=== PATIENT | male | born 1980 | race Two or more races ===

== ENCOUNTER 2018-04-05 17:25 | Emergency (ER) | payer SELFPAY ==
[~2018-04-05] VITALS: Ht 190.5 cm; Wt 94.6 kg
[2018-04-05 19:10] LABS: BASOPHILS # (AUTO) 0.02 x10^3/uL (0-0.1); BASOPHILS % (AUTO) 0 % (0-1); EOSINOPHILS # (AUTO) 0.17 x10^3/uL (0-0.4); EOSINOPHILS % (AUTO) 2 % (1-7); LYMPHOCYTES # (AUTO) 0.69 x10^3/uL (1-3.4); LYMPHOCYTES % (AUTO) 8 % (22-44); MD NO; MEAN CORPUSCULAR HEMOGLOBIN 21.6 pg (27.5-34.5); MEAN CORPUSCULAR HGB CONC 31.9 g/dL (33.2-36.2); MEAN CORPUSCULAR VOLUME 67.7 fL (81-97); MEAN PLATELET VOLUME 7.8 fL (7.4-10.4); MONOCYTES # (AUTO) 0.74 x10^3/uL (0.2-0.8); MONOCYTES % (AUTO) 8 % (2-9); NEUTROPHILS # (AUTO) 7.16 x10^3/uL (1.8-6.8); NEUTROPHILS % (AUTO) 82 % (42-75); PLATELET COUNT 271 x10^3/uL (130-400); RED BLOOD COUNT 7.18 x10^6/uL (4.38-5.82); RED CELL DISTRIBUTION WIDTH 14.5 % (9.4-14.8)
[2018-04-05 19:12] LABS: RAPID INFLUENZA A Negative (Negative); RAPID INFLUENZA B Negative (Negative)
[2018-04-05 19:21] LABS: ALBUMIN 4.1 g/dL (3.4-5.0); ANION GAP 8 mmol/L (5-15); CALCIUM 8.6 mg/dL (8.5-10.1); CHLORIDE 102 mmol/L (98-107)
[2018-04-05 19:30] LABS: ALANINE AMINOTRANSFERASE 36 U/L (12-78); ALKALINE PHOSPHATASE 51 U/L (45-117); BILIRUBIN,TOTAL 0.2 mg/dL (0.2-1.0); CREATININE 1.21 mg/dL (0.7-1.3); TOTAL PROTEIN 8.4 g/dL (6.4-8.2)
[2018-04-05] MEDS ORDERED: ACETAMINOPHEN 500 MG TABLET PO ONE (19:30)
[2018-04-05] MEDS ORDERED: ACETAMINOPHEN 500 MG TABLET ONE (19:35)
[2018-04-05 20:05] LABS: MICROSCOPIC NOT IND
[2018-04-05 20:25] LABS: CULTURE INDICATED? NO
[2018-04-05] MEDS ORDERED: OMNIPAQUE 350 MG/ML, 100ML BOTTLE ONE (20:25)
[2018-04-05 20:46] VITALS: BP 124/68
[2018-04-05] MEDS ORDERED: IBUPROFEN 200 MG TABLET PO ONE (21:00)
[2018-04-05] MEDS ORDERED: IBUPROFEN 600 MG TABLET ONE (21:08)
== END 2018-04-05 21:16 | disposition home or self-care (01) ==
LOC: ED 21:10
DX: R50.9 Fever, unspecified (principal); R05 Cough; R07.9 Chest pain, unspecified
CPT/HCPCS: 36415; 71045; 74177; 80053; 81003; 83690; 85025; 87400; 93005; 99284; Q9967

== ENCOUNTER 2019-12-18 13:31 | Inpatient (IN) | payer SELFPAY ==
[~2019-12-18] VITALS: Ht 188 cm; Wt 89.0 kg
--- NOTE | 2019-12-18 14:07 | NUR ---
PT BROUGHT TO ROOM, CHANGED INTO GOWN. PT C/O PROGRESSIVE GENERALIZED WEAKNESS OVER THE PAST 2 MONTHS, PROGRESSING TO DYSPNEA ON EVERTION. PT WAS VISITING HERE IN THE ER TODAY, AND FELL TO THE GROUND UPON LEAVING. WAS UNABLE TO GET BACK UP ON HIS OWN. PT NOTABLY WEAK IN ROOM, MUST USE ARMS TO HELP LIFT HIS LEGS ONTO THE BED. ATTACHED TO MONITORS. DENIES ANY NEEDS AT THIS TIME, CALL LIGHT IN REACH.
[2019-12-18] MEDS ORDERED: SODIUM CHLORIDE FLUSH 10ML SYR IVF ONE (14:30)
[2019-12-18 15:12] LABS: BASOPHILS # (AUTO) 0.01 x10^3/uL (0-0.1); BASOPHILS % (AUTO) 0 % (0-1); EOSINOPHILS # (AUTO) 0.22 x10^3/uL (0-0.4); EOSINOPHILS % (AUTO) 3 % (1-7); HCT (SEDRATE) 39.3 % (39.2-51.8); LYMPHOCYTES # (AUTO) 1.69 x10^3/uL (1-3.4); LYMPHOCYTES % (AUTO) 20 % (22-44); MD NO; MEAN CORPUSCULAR HEMOGLOBIN 20.6 pg (27.5-34.5); MEAN CORPUSCULAR VOLUME 66.3 fL (81-97); MEAN PLATELET VOLUME 7.4 fL (7.4-10.4); MONOCYTES # (AUTO) 0.05 x10^3/uL (0.2-0.8); MONOCYTES % (AUTO) 1 % (2-9); NEUTROPHILS # (AUTO) 6.51 x10^3/uL (1.8-6.8); NEUTROPHILS % (AUTO) 77 % (42-75); PLATELET COUNT 433 x10^3/uL (130-400); RED BLOOD COUNT 5.97 x10^6/uL (4.38-5.82); RED CELL DISTRIBUTION WIDTH 17.6 % (9.4-14.8)
[2019-12-18 15:17] LABS: ALANINE AMINOTRANSFERASE 389 U/L (12-78); ALBUMIN 2.6 g/dL (3.4-5.0); ANION GAP 2 mmol/L (5-15); CALCIUM 8.5 mg/dL (8.5-10.1); CHLORIDE 107 mmol/L (98-107); CREATININE 0.62 mg/dL (0.7-1.3)
[2019-12-18 15:22] LABS: ALKALINE PHOSPHATASE 49 U/L (45-117); BILIRUBIN,TOTAL 0.3 mg/dL (0.2-1.0); TOTAL PROTEIN 9.2 g/dL (6.4-8.2); TROPONIN I 0.235 ng/mL (0.000-0.045)
[2019-12-18 15:43] LABS: T4 (THYROXINE) 7.9 mcg/dL (4.5-12.1)
--- NOTE | 2019-12-18 16:05 | NUR ---
PT IN BED, RESTING. DENIES ANY NEEDS AT THIS TIME. CALL LIGHT IN REACH.
[2019-12-18 16:30] LABS: CREATINE KINASE, TOTAL 22505 U/L (39-308)
--- NOTE | 2019-12-18 16:38 | NUR ---
THIS NURSE AND A SECOND HAVE BOTH ATTEMPTED TO PLACE AN IV LINE, UNSUCCESSFULLY. PT VASCULATURE IS DIFFICULT, THIRD RN AT BEDSIDE FOR EVALUATION AND IV START AT THIS TIME. PT DENIES ANY CURRENT NEEDS OR CONCERNS, CALL LIGHT IN REACH.
[2019-12-18] MEDS ORDERED: OMNIPAQUE 350 MG/ML, 100ML BOTTLE ONE (17:51)
[2019-12-18] MEDS ORDERED: SODIUM CHLORIDE FLUSH 10ML SYR IVF PRN (19:00)
[2019-12-18 19:09] LABS: MICROSCOPIC AUTO
--- NOTE | 2019-12-18 19:39 | NUR ---
PT UPDATED ON PLAN OF CARE. VERBALIZES UNDERSTANDING, AND DENIES ANY NEEDS OR CONCERNS AT THIS TIME. CALL LIGHT IN REACH.
--- NOTE | 2019-12-18 19:54 | NUR ---
REPORT TO SHADIA RECEIVING RN. PT AWAITING TRANSPORT AT THIS TIME.
[2019-12-18] MEDS ORDERED: OXYcodone IR 5MG TABLET PO PRN (20:30)
[2019-12-18] MEDS ORDERED: morphine SULFATE 10 MG/ML, 1ML IVPush PRN (20:30)
[2019-12-18] MEDS ORDERED: ONDANSETRON ODT 4 MG PO PRN (20:30)
[2019-12-18] MEDS ORDERED: DOCUSATE 100 MG CAPSULE PO PRN (20:30)
[2019-12-18] MEDS ORDERED: PROMETHAZINE 25 MG/ML, 1ML IM PRN (20:30)
[2019-12-18] MEDS ORDERED: ONDANSETRON 2MG/ML, 2ML IVPush PRN (20:30)
[2019-12-18] MEDS ORDERED: POLYETHYLENE GLYCOL 17 GM PACKET PO PRN (20:30)
[2019-12-18] MEDS ORDERED: BISACODYL 10 MG SUPP PR PRN (20:30)
[2019-12-18] MEDS ORDERED: hydrALAzine 20 MG/ML, 1ML IVPush PRN (20:30)
[2019-12-18 20:50] VITALS: BP 126/73
[2019-12-18] MEDS: ENOXAPARIN 40 MG/0.4 ML SQ SCH (23:03)
[2019-12-18] MEDS: SODIUM CHLORIDE 0.9% 1,000 ML IV SCH (23:03)
[2019-12-19 00:09] LABS: TROPONIN I 0.252 ng/mL (0.000-0.045)
[2019-12-19 02:00] VITALS: BP 117/74
[2019-12-19] MEDS: SODIUM CHLORIDE 0.9% 1,000 ML IV SCH ×4 (05:28→22:40)
[2019-12-19 06:00] LABS: BASOPHILS # (AUTO) 0.04 x10^3/uL (0-0.1); BASOPHILS % (AUTO) 1 % (0-1); EOSINOPHILS # (AUTO) 0.29 x10^3/uL (0-0.4); EOSINOPHILS % (AUTO) 3 % (1-7); LYMPHOCYTES # (AUTO) 1.73 x10^3/uL (1-3.4); LYMPHOCYTES % (AUTO) 20 % (22-44); MD NO; MEAN CORPUSCULAR HEMOGLOBIN 20.4 pg (27.5-34.5); MEAN CORPUSCULAR HGB CONC 30.9 g/dL (33.2-36.2); MEAN CORPUSCULAR VOLUME 66.1 fL (81-97); MEAN PLATELET VOLUME 7.5 fL (7.4-10.4); MONOCYTES # (AUTO) 0.34 x10^3/uL (0.2-0.8); MONOCYTES % (AUTO) 4 % (2-9); NEUTROPHILS # (AUTO) 6.31 x10^3/uL (1.8-6.8); NEUTROPHILS % (AUTO) 73 % (42-75); PLATELET COUNT 400 x10^3/uL (130-400); RED BLOOD COUNT 5.41 x10^6/uL (4.38-5.82); RED CELL DISTRIBUTION WIDTH 17.5 % (9.4-14.8)
[2019-12-19 06:08] LABS: ALBUMIN 2.2 g/dL (3.4-5.0); ANION GAP 5 mmol/L (5-15); CALCIUM 8.7 mg/dL (8.5-10.1); CHLORIDE 109 mmol/L (98-107)
[2019-12-19 06:13] LABS: ALANINE AMINOTRANSFERASE 283 U/L (12-78); ALKALINE PHOSPHATASE 39 U/L (45-117); BILIRUBIN,TOTAL 0.3 mg/dL (0.2-1.0); CHOL/HDL RATIO 4.5; CHOLESTEROL, TOTAL 109 mg/dL (140-239); CREATININE 0.57 mg/dL (0.7-1.3); HDL CHOL % 22 % (26-37); HDL CHOLESTEROL (DIRECT) 24 mg/dL (40-60); LDL CHOLESTEROL,CALCULATED 54 mg/dL (54-169); LDL/HDL RATIO 2.3 (0.5-3.0); TOTAL PROTEIN 7.7 g/dL (6.4-8.2); TRIGLYCERIDES 156 mg/dL (50-200); TROPONIN I 0.289 ng/mL (0.000-0.045); VLDL CHOLESTEROL 31 mg/dL (0-25)
[2019-12-19 07:10] VITALS: BP 105/55
[2019-12-19 12:36] VITALS: BP 113/68
[2019-12-19 16:23] LABS: INTERNATIONAL NORMALIZED RATIO 1.11 (0.93-1.1); PROTHROMBIN TIME 11.4 Seconds (9.6-11.5)
[2019-12-19 21:27] VITALS: BP 124/65
[2019-12-19] MEDS: ENOXAPARIN 40 MG/0.4 ML SQ SCH (22:48)
[2019-12-20] MEDS ORDERED: MAGNESIUM SULFATE PMX 2GM/50ML 50 ML IV ONE (00:30)
[2019-12-20 00:53] VITALS: BP 115/67
[2019-12-20] MEDS: SODIUM CHLORIDE 0.9% 1,000 ML IV SCH ×3 (05:20→22:10)
[2019-12-20 05:58] LABS: MEAN CORPUSCULAR HEMOGLOBIN 20.3 pg (27.5-34.5); MEAN CORPUSCULAR HGB CONC 30.4 g/dL (33.2-36.2); MEAN CORPUSCULAR VOLUME 66.8 fL (81-97); MEAN PLATELET VOLUME 7.4 fL (7.4-10.4); PLATELET COUNT 416 x10^3/uL (130-400); RED BLOOD COUNT 5.29 x10^6/uL (4.38-5.82); RED CELL DISTRIBUTION WIDTH 17.9 % (9.4-14.8)
[2019-12-20 06:04] LABS: ALBUMIN 2.1 g/dL (3.4-5.0); ANION GAP 4 mmol/L (5-15); CALCIUM 8.3 mg/dL (8.5-10.1); CHLORIDE 109 mmol/L (98-107)
[2019-12-20 06:25] LABS: BASOPHILS # (AUTO) 0.05 x10^3/uL (0-0.1); BASOPHILS % (AUTO) 1 % (0-1); EOSINOPHILS # (AUTO) 0.23 x10^3/uL (0-0.4); EOSINOPHILS % (AUTO) 3 % (1-7); LYMPHOCYTES # (AUTO) 1.85 x10^3/uL (1-3.4); LYMPHOCYTES % (AUTO) 23 % (22-44); MD SCAN; MONOCYTES # (AUTO) 0.36 x10^3/uL (0.2-0.8); MONOCYTES % (AUTO) 5 % (2-9); NEUTROPHILS # (AUTO) 5.67 x10^3/uL (1.8-6.8); NEUTROPHILS % (AUTO) 70 % (42-75)
[2019-12-20 06:30] LABS: ALANINE AMINOTRANSFERASE 276 U/L (12-78); ALKALINE PHOSPHATASE 37 U/L (45-117); BILIRUBIN,TOTAL 0.3 mg/dL (0.2-1.0); TOTAL PROTEIN 7.6 g/dL (6.4-8.2)
[2019-12-20 06:40] VITALS: BP 115/67
[2019-12-20 07:03] LABS: CREATINE KINASE, TOTAL 15680 U/L (39-308)
[2019-12-20] MEDS ORDERED: REGADENOSON 0.4 MG/5 ML SYRINGE ONE (07:55)
[2019-12-20 08:16] LABS: TROPONIN I 0.287 ng/mL (0.000-0.045)
[2019-12-20 13:47] VITALS: BP 116/66
[2019-12-20 21:01] VITALS: BP 114/67
[2019-12-20] MEDS: ENOXAPARIN 40 MG/0.4 ML SQ SCH (22:09)
[2019-12-21 00:17] VITALS: BP 113/61
[2019-12-21] MEDS: SODIUM CHLORIDE 0.9% 1,000 ML IV SCH ×2 (04:31→11:24)
[2019-12-21 04:43] LABS: BASOPHILS # (AUTO) 0.06 x10^3/uL (0-0.1); BASOPHILS % (AUTO) 1 % (0-1); EOSINOPHILS # (AUTO) 0.27 x10^3/uL (0-0.4); EOSINOPHILS % (AUTO) 3 % (1-7); LYMPHOCYTES # (AUTO) 1.94 x10^3/uL (1-3.4); LYMPHOCYTES % (AUTO) 22 % (22-44); MD NO; MEAN CORPUSCULAR HEMOGLOBIN 20.8 pg (27.5-34.5); MEAN CORPUSCULAR HGB CONC 31.6 g/dL (33.2-36.2); MEAN CORPUSCULAR VOLUME 65.6 fL (81-97); MEAN PLATELET VOLUME 7.4 fL (7.4-10.4); MONOCYTES # (AUTO) 0.42 x10^3/uL (0.2-0.8); MONOCYTES % (AUTO) 5 % (2-9); NEUTROPHILS % (AUTO) 70 % (42-75); PLATELET COUNT 431 x10^3/uL (130-400); RED BLOOD COUNT 5.12 x10^6/uL (4.38-5.82); RED CELL DISTRIBUTION WIDTH 17.3 % (9.4-14.8)
[2019-12-21 04:53] LABS: ANION GAP 6 mmol/L (5-15); CALCIUM 8.2 mg/dL (8.5-10.1); CHLORIDE 110 mmol/L (98-107); CREATININE 0.54 mg/dL (0.7-1.3)
[2019-12-21 06:30] LABS: CREATINE KINASE, TOTAL 13694 U/L (39-308)
[2019-12-21 08:28] VITALS: BP 112/63
[2019-12-21 13:43] VITALS: BP 109/65
[2019-12-21] MEDS: LACTATED RINGERS 1,000 ML IV SCH ×2 (13:46→22:54)
[2019-12-21] MEDS: PANTOPRAZOLE 20MG TABLET PO SCH (18:03)
[2019-12-21 18:48] VITALS: BP 118/63
[2019-12-21] MEDS: ENOXAPARIN 40 MG/0.4 ML SQ SCH (22:54)
[2019-12-22 00:31] VITALS: BP 108/58
[2019-12-22 05:24] LABS: BASOPHILS # (AUTO) 0.04 x10^3/uL (0-0.1); BASOPHILS % (AUTO) 0 % (0-1); EOSINOPHILS # (AUTO) 0.12 x10^3/uL (0-0.4); EOSINOPHILS % (AUTO) 1 % (1-7); LYMPHOCYTES # (AUTO) 1.91 x10^3/uL (1-3.4); LYMPHOCYTES % (AUTO) 20 % (22-44); MD NO; MEAN CORPUSCULAR HEMOGLOBIN 20.9 pg (27.5-34.5); MEAN CORPUSCULAR HGB CONC 31.5 g/dL (33.2-36.2); MEAN CORPUSCULAR VOLUME 66.3 fL (81-97); MONOCYTES # (AUTO) 0.37 x10^3/uL (0.2-0.8); MONOCYTES % (AUTO) 4 % (2-9); NEUTROPHILS # (AUTO) 7.07 x10^3/uL (1.8-6.8); NEUTROPHILS % (AUTO) 74 % (42-75); PLATELET COUNT 412 x10^3/uL (130-400); RED BLOOD COUNT 4.81 x10^6/uL (4.38-5.82); RED CELL DISTRIBUTION WIDTH 17.3 % (9.4-14.8)
[2019-12-22 05:28] LABS: ALBUMIN 2.2 g/dL (3.4-5.0); ANION GAP 6 mmol/L (5-15); CALCIUM 8.3 mg/dL (8.5-10.1); CHLORIDE 109 mmol/L (98-107)
[2019-12-22 05:56] LABS: % IRON SATURATION 36 % (20-55); ALANINE AMINOTRANSFERASE 289 U/L (12-78); ALKALINE PHOSPHATASE 39 U/L (45-117); BILIRUBIN,TOTAL 0.3 mg/dL (0.2-1.0); CREATININE 0.56 mg/dL (0.7-1.3); IRON LEVEL 59 mcg/dL (65-175); TOTAL IRON BINDING CAPACITY 165 mcg/dL (250-450)
[2019-12-22] MEDS: LACTATED RINGERS 1,000 ML IV SCH ×3 (06:19→19:59)
[2019-12-22] MEDS: PANTOPRAZOLE 20MG TABLET PO SCH ×2 (06:20→17:19)
[2019-12-22 06:24] LABS: CREATINE KINASE, TOTAL 15079 U/L (39-308)
[2019-12-22 09:58] VITALS: BP 113/68
[2019-12-22 13:03] VITALS: BP 122/61
[2019-12-22 19:00] VITALS: BP 100/61
[2019-12-22] MEDS: ENOXAPARIN 40 MG/0.4 ML SQ SCH (21:23)
[2019-12-23] MEDS: LACTATED RINGERS 1,000 ML IV SCH (02:17)
[2019-12-23 02:26] VITALS: BP 100/56
[2019-12-23] MEDS: PANTOPRAZOLE 20MG TABLET PO SCH (06:09)
[2019-12-23 07:19] LABS: BASOPHILS % (AUTO) 0 % (0-1); EOSINOPHILS # (AUTO) 0.08 x10^3/uL (0-0.4); EOSINOPHILS % (AUTO) 1 % (1-7); LYMPHOCYTES # (AUTO) 1.62 x10^3/uL (1-3.4); LYMPHOCYTES % (AUTO) 17 % (22-44); MD NO; MEAN CORPUSCULAR HEMOGLOBIN 20.5 pg (27.5-34.5); MEAN CORPUSCULAR HGB CONC 31.1 g/dL (33.2-36.2); MEAN CORPUSCULAR VOLUME 66.1 fL (81-97); MEAN PLATELET VOLUME 7.4 fL (7.4-10.4); MONOCYTES # (AUTO) 0.53 x10^3/uL (0.2-0.8); MONOCYTES % (AUTO) 6 % (2-9); NEUTROPHILS # (AUTO) 7.18 x10^3/uL (1.8-6.8); NEUTROPHILS % (AUTO) 76 % (42-75); PLATELET COUNT 398 x10^3/uL (130-400); RED CELL DISTRIBUTION WIDTH 17.3 % (9.4-14.8)
[2019-12-23 07:32] LABS: ALBUMIN 2.3 g/dL (3.4-5.0); ANION GAP 4 mmol/L (5-15); CALCIUM 8.2 mg/dL (8.5-10.1); CHLORIDE 110 mmol/L (98-107)
[2019-12-23 07:34] LABS: ALANINE AMINOTRANSFERASE 287 U/L (12-78); ALKALINE PHOSPHATASE 39 U/L (45-117); BILIRUBIN,TOTAL 0.2 mg/dL (0.2-1.0); CREATININE 0.51 mg/dL (0.7-1.3); TOTAL PROTEIN 7.7 g/dL (6.4-8.2)
[2019-12-23] MEDS ORDERED: POTASSIUM CHLORIDE 20 MEQ TAB.ER.PRT PO ONE (08:00)
[2019-12-23] MEDS ORDERED: FUROSEMIDE 40 MG/4 ML IV ONE (08:00)
[2019-12-23] MEDS ORDERED: PANT20TA3 PO (09:11)
[2019-12-23] MEDS ORDERED: PRED20TA PO (09:12)
[2019-12-23 09:13] VITALS: BP 101/57
[2019-12-23] MEDS ORDERED: FERR324T5 PO (10:23)
[2019-12-23 12:50] VITALS: BP 114/65
== END 2019-12-23 16:34 | disposition home or self-care (01) | DRG 546 ==
LOC: ED 14:45 → EDIP 18:49 → 5SO 20:33 → 4NW 12-20 21:49
PROVIDERS: ADMIT Internal Medicine; ATTEND Internal Medicine
DX: M33.22 Polymyositis with myopathy (principal); E70.30 Albinism, unspecified; M62.82 Rhabdomyolysis; E46 Unspecified protein-calorie malnutrition; I42.9 Cardiomyopathy, unspecified; J84.9 Interstitial pulmonary disease, unspecified; D50.9 Iron deficiency anemia, unspecified; E87.70 Fluid overload, unspecified; H54.8 Legal blindness, as defined in USA; H55.00 Unspecified nystagmus; I37.1 Nonrheumatic pulmonary valve insufficiency; R74.0 Nonspecific elevation of levels of transaminase and lactic acid dehydrogenase [LDH]; Z68.25 Body mass index [BMI] 25.0-25.9, adult
CPT/HCPCS: 36415; 71045; 71046; 71250; 72132; 78452; 80048; 80053; 80061; 80074; 81001; 82550; 82728; 83036; 83540; 83550; 83605; 83735; 83880; 84100; 84436; 84439; 84443; 84484; 84550; 85025; 85610; 85651; 86038; 86063; 86140; 86430; 87635; 93005; 93017; 93306; G0378; J1650; J1940; J2785; Q9967; A9502; C9898; J3475; J7030; J7120; J7512

== ENCOUNTER 2019-12-31 11:38 | Emergency (ER) | payer SELFPAY ==
[~2019-12-31] VITALS: Ht 188 cm; Wt 89.1 kg
[~2019-12-31 11:38] MED LIST: FERR324T5 PO; PANT20TA3 PO; PRED20TA PO
--- NOTE | 2019-12-31 13:05 | NUR ---
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
--- NOTE | 2019-12-31 13:09 | NUR ---
CONTACT WITH PT, 39 YR OLD MALE HERE WITH C/O "I WAS HERE LAST WEEK. I WAS ADMITTED FOR PROBABLY MY ASCITIES. THEY SAY IT CAN ATTACK MUSCLES. I HAVE BEEN WEAK. I HAD BLOOD WORK ON . THEY SAID MY LIVER TESTS ARE ELEVATED AND THAT IS WHY I AM HERE" PT STATES "FEELING FINE THE PAST COUPLE OF DAYS"
--- NOTE | 2019-12-31 13:34 | NUR ---
PT'S BROUGHT IN [employer]. PT INSTRUCTED NOT TO EAT UNTIL SEEN BY A PHYSICIAN AND OK'D TO EAT. UNDERSTANDING VERBALIZED.
--- NOTE | 2019-12-31 14:17 | NUR ---
NO CHANGE IN PT CONDITION NOTED. WAITING MD EVAL AND ORDERS. NO NEEDS EXPRESSED AT THIS TIME.
--- NOTE | 2019-12-31 14:34 | NUR ---
CANDY CUTTER MACHINE AT BEDSIDE TO DRAW LABS.
--- NOTE | 2019-12-31 14:35 | NUR ---
DR TREJO AT BEDSIDE TO EVAL PT
[2019-12-31 14:42] LABS: MEAN CORPUSCULAR HEMOGLOBIN 20.8 pg (27.5-34.5); MEAN CORPUSCULAR VOLUME 67.1 fL (81-97); MEAN PLATELET VOLUME 7.6 fL (7.4-10.4); PLATELET COUNT 514 x10^3/uL (130-400); RED BLOOD COUNT 6.07 x10^6/uL (4.38-5.82); RED CELL DISTRIBUTION WIDTH 18.6 % (9.4-14.8)
[2019-12-31 14:51] LABS: MD YES
[2019-12-31 14:55] LABS: ALANINE AMINOTRANSFERASE 293 U/L (12-78); ALBUMIN 2.8 g/dL (3.4-5.0); ANION GAP 4 mmol/L (5-15); CHLORIDE 105 mmol/L (98-107); CREATININE 0.57 mg/dL (0.7-1.3)
[2019-12-31 15:23] LABS: ALKALINE PHOSPHATASE 49 U/L (45-117); BILIRUBIN,TOTAL 0.4 mg/dL (0.2-1.0); TOTAL PROTEIN 9.3 g/dL (6.4-8.2)
[2019-12-31 15:29] LABS: INTERNATIONAL NORMALIZED RATIO 1.04 (0.93-1.1); PROTHROMBIN TIME 10.7 Seconds (9.6-11.5)
[2019-12-31 15:48] LABS: LYMPH#(MANUAL) 1.34 x10^3/uL (1-3.4); LYMPHS% (MANUAL) 8 % (22-44); MONOS#(MANUAL) 0.34 x10^3/uL (0.3-2.7); MONOS% (MANUAL) 2 % (2-9); SEG#(MANUAL) 15.12 x10^3/uL (1.8-6.8); SEGS% (MANUAL) 90 % (42-75)
[2019-12-31 15:49] LABS: HYPOCHROMIA 2+; MICROCYTOSIS 2+
--- NOTE | 2019-12-31 15:49 | NUR ---
NO CHANGE IN PT CONDITION NOTED. UPDATED ON POC. WAITING FOR TEST RESULTS. NO NEEDS EXPRESSED AT THIS TIME.
[2019-12-31 15:50] LABS: <PLATELET ESTIMATE> INCREASED; <PLT MORPHOLOGY> NORMAL PLT MORPH; POLYCHROMASIA 1+; TARGET CELLS 1+
[2019-12-31 15:51] VITALS: BP 108/55
[2019-12-31 15:59] LABS: CREATINE KINASE, TOTAL 9850 U/L (39-308)
--- NOTE | 2019-12-31 16:12 | NUR ---
PT UP TO BR, GAIT SLOW AND STEADY
[2019-12-31 16:20] LABS: CALCIUM 8.5 mg/dL (8.5-10.1)
--- NOTE | 2019-12-31 17:16 | NUR ---
NO IV TO DC, REVIEWED DC INSTRUCTIONS WITH PT, UNDERSTANDING VERBALIZED. PTS REQUESTING TAXI VOUCHER, PROVIDED TO PT. PTS WITH CONCERN ABOUT COST OF OMNICEF "OVER $100" DISCUSSED GOOD RX, OPENED INGA ON PHONE TO SHOW COSTS ADVERTISED. ALSO DISCUSSED IF CONT PROBLEMS WITH COST, TO CALL BACK AND CAN BE DISCUSSED WITH MD. UNDERSTANDING VERBALIZED. PT LEFT AMB WITH USE OF ROLLING WALKER.
== END 2019-12-31 17:20 | disposition home or self-care (01) ==
LOC: ED 17:00
DX: M33.20 Polymyositis, organ involvement unspecified (principal); R94.5 Abnormal results of liver function studies; I51.7 Cardiomegaly
CPT/HCPCS: 36415; 71046; 80053; 82550; 83605; 85025; 85610; 85730; 99284